=== PATIENT | female | born 1945 | race Caucasian/White ===

== ENCOUNTER 2020-05-18 01:42 | Emergency (ER) | payer MEDICARE, SELFPAY ==
[2020-05-18] VITALS (11 sets, daily range): BP systolic 144–155; BP diastolic 84–89; PULSE 90–106; RESP 14–19; TEMP 36.3–36.6; O2SAT 96–100
--- NOTE | ~2020-05-18 | XR_ITS ---
XR chest 1V portable DATE: 05/18/2020 02:17 INDICATION: Right-sided weakness TECHNIQUE: Portable supine AP views on 05/18/2020 at 0214 hours COMPARISON: None FINDINGS: Normal heart size. No hilar or mediastinal enlargement. No pulmonary infiltrate or consolid ation, pleural effusion or pulmonary vascular congestion or pneumothorax. IMPRESSION: No active cardiopulmonary disease Reviewed, dictated and finalized at [facility]. [employer]
--- NOTE | ~2020-05-18 | CT_ITS ---
EXAMINATION: CT brain wo con DATE: 05/18/2020 01:48 INDICATION: Right sided paresis TECHNIQUE: Computed tomography (CT) of the head was performed without intravenous contrast. The mA wa s adjusted according to patient size. Iterative reconstruction technique was employed. Exam dose: 68 1.00 mGy-cm total exam DLP. COMPARISON: None FINDINGS: There is a large approximately 2.1 x 2.3 by at least 6.7 cm right temporal parietal acute c erebral hemorrhage with surrounding hypoattenuating the main. There is associated effacement of the r ight cerebral cortical sulci but no significant midline shift. No other intracranial mass lesion or hemorrhage is evident. No subdural or epidural hematoma. Ventric ular size is within normal range. Left ocular prosthesis. No fracture or bone destruction of the cranial vault. Paranasal sinuses and mastoid air cells are normally developed and aerated.. IMPRESSION: Large right acute temporoparietal cerebral hemorrhage Reviewed, dictated and finalized at [facility]. Reviewed, dictated and finalized at location [facility]. [employer]
[2020-05-18 01:49] LABS: Glucose Point of Care 100 (65-105)
--- NOTE | 2020-05-18 02:13 | ED.NEUROSD ---
HPI - Neuro Symptoms/Deficit General Chief Complaint: Suspected CVA Stated Complaint: L sided deficit Time Seen by Provider: 05/18/20 01:48 History of Present Illness HPI Narrative: Patient 75-year-old female who presents [facility] department chief complaint of left-sided weakness. Patient reports he was last known well at 0052 states that she was laying in bed and had sudden onset where she could not move her left side. Patient denies headache denies changes in vision denies as change in consciousness. Patient reports no prior history of CVA reports history of hypertension states that she is not on any antiplatelet therapy and not on any anticoagulant. Patient reports she is unable to move her left upper extremity or left lower extremity. Last Observed Normal: 00:52 Related Data Home Medications Medication Instructions Recorded Confirmed biotin 1 mg capsule 1 mg PO DAILY 11/26/19 01/18/20 Allergies Allergy/AdvReac Type Severity Reaction Status Date / Time No Known Allergies Allergy Verified 05/18/20 01:54 Review of Systems Review of Systems: Narrative: CONSTITUTIONAL: Denies fever, chills, or sweats. EYES: Denies visual changes, redness, or discharge. ENT: Denies rhinorrhea, congestion, sore throat, or otalgia. CARDIOVASCULAR: Denies chest pain, palpitations, or edema. RESPIRATORY: Denies cough or dyspnea. GASTROINTESTINAL: Denies abdominal pain, nausea, vomiting, or diarrhea. GENITOURINARY: Denies dysuria or hematuria. SKIN: Denies rash or itching. MUSCULOSKELETAL: Denies back pain, joint pain, or myalgia. NEUROLOGIC: Denies headache, numbness, or weakness. PSYCHIATRIC: Denies anxiety or depression. A 10 system review of systems was completed on the patient and is negative except for what is stated in the HPI. Nursing and ancillary documentation was reviewed. 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 HEAD: Normocephalic, atraumatic. EYES: PERRLA and EOMI. ENT: Nares clear, no rhinorrhea or epistaxis. Mucous membranes moist. NECK: Supple. CHEST: Clear to auscultation. No respiratory distress. HEART: Regular rate and rhythm. No murmur heard. Normal peripheral pulses. ABDOMEN: Soft, nontender, nondistended, normal active bowel sounds. EXTREMITIES: There is left-sided paralysis of both the upper extremity and the lower extremity. Right upper extremity has full range of motion right lower extremity has full range of motion. SKIN: Warm, dry, no rash. NEURO: Left-sided facial paralysis paralysis of left upper extremity and left lower extremity. Alert and oriented x3. PSYCH: Normal mood and affect. Course Vital Signs Vital signs: Vital Signs Temperature 36.6 C 05/18/20 01:39 Pulse Rate 102 H 05/18/20 01:39 Respiratory Rate 16 05/18/20 01:39 Blood Pressure 155/89 H 05/18/20 01:39 Pulse Oximetry 99 05/18/20 01:39 Temperature 36.6 C 05/18/20 01:45 Pulse Rate 106 H 05/18/20 01:52 Respiratory Rate 19 05/18/20 01:52 Blood Pressure 155/89 H 05/18/20 01:52 Pulse Oximetry 100 05/18/20 01:52 MDM - Neuro Symptoms/Deficit Lab Data Result diagrams: 05/18/20 02:02 05/18/20 02:02 Labs: Lab Results 05/18/20 05/18/20 05/18/20 Range/Units 01:47 02:02 02:02
[2020-05-18 02:18] LABS: Basophils Absolute Auto 0.1 K/mm3 (0.0-0.1); Basophils Percent Auto 0.8 % (0.2-1.2); Eosinophils Absolute Auto 0.3 K/mm3 (0-0.3); Eosinophils Percent Auto 3.1 % (0-4.4); Hematocrit 40.3 % (37.0-47.0); Immature Granulocyte Absolute 0.02 K/mm3 (0.00-0.031); Immature Granulocyte Percent A 0.2 % (0-0.5); Lymphocytes Absolute Auto 4.11 K/mm3 (0.9-3.2); Lymphocytes Percent Auto 44.8 % (18.3-44.2); Mean Corpuscular HGB Conc 34.7 g/dl (32-36); Mean Corpuscular Hemoglobin 29.8 pg (26-34); Mean Corpuscular Volume 85.7 fl (80-100); Mean Platelet Volume 9.8 fl (7.4-10.4); Monocytes Absolute Auto 0.7 K/mm3 (0.1-0.6); Monocytes Percent Auto 7.8 % (2.6-8.5); Neutrophils Percent Auto 43.3 % (45.5-73.1); Platelet Count Result 315 k/mm3 (150-375); Red Cell Distribution Width 12.2 % (11.5-14.5); White Blood Count 9.2 K/mm3 (4.5-10.0)
[2020-05-18 02:21] LABS: INR 0.9; Prothrombin Time 13.1 Seconds (11.1-14.7)
[2020-05-18 02:22] LABS: Anion Gap 9 mmol/L (8-16); Blood Urea Nitrogen 18 mg/dL (7-17); Calcium 9.5 mg/dL (8.4-10.2); Carbon Dioxide 27 mmol/L (22-30); Chloride 102 mmol/L (98-107); Estimated CRCL calculation 40 ml/min; Estimated Glomerular Filt Rate 54; Glucose 119 mg/dL (65-105); Partial Thromboplastin Time 28.6 SECONDS (22.3-36.8); Potassium 3.5 mmol/L (3.4-5.0); Sodium 138 mmol/L (137-145)
[2020-05-18 02:35] LABS: Troponin I < 0.012 ng/mL (0.000-0.034)
== END 2020-05-18 02:48 | disposition short-term general hospital (02) ==
PROVIDERS: Emergency Provider Emergency Medicine; PCP Family Medicine
DX: I61.9 Nontraumatic intracerebral hemorrhage, unspecified (principal); I10 Essential (primary) hypertension; K21.9 Gastro-esophageal reflux disease without esophagitis; I34.1 Nonrheumatic mitral (valve) prolapse; E78.5 Hyperlipidemia, unspecified
CPT/HCPCS: 36415; 70450; 71045; 80048; 82948; 84484; 85025; 85610; 85730; 99284; 99285